=== PATIENT | female | born 2000 | race Hispanic/Latino ===

== ENCOUNTER 2023-04-14 12:02 | Emergency (ER) | payer BC ==
[~2023-04-14] VITALS: Ht 165.1 cm; Wt 57.0 kg
[2023-04-14] MEDS ORDERED: CEPHALEXIN500 M1 PO (13:08)
[2023-04-14 13:16] VITALS: BP 121/80
== END 2023-04-14 13:17 | disposition home or self-care (01) ==
LOC: ED 12:02
DX: S61.441A Puncture wound with foreign body of right hand, initial encounter (principal); W45.8XXA Other foreign body or object entering through skin, initial encounter
CPT/HCPCS: 10120; 73130; 99283 25